=== PATIENT | male | born 1985 | race Caucasian/White ===

== ENCOUNTER 2019-01-22 16:02 | Emergency (ER) | payer MEDICAID, SELFPAY ==
[2019-01-22 16:08] VITALS: BP 170/99; PULSE 62; RESP 14; TEMP 36.3; O2SAT 99
[2019-01-22] MEDS: Normal Saline 1,000 ML 1000 ML IV (16:42)
[2019-01-22 16:58] LABS: Abs Immature Grans 0.03 k/cumm (0.0-0.09); Absolute Basophil Count 0.05 k/cumm (0.0-0.2); Absolute Eosinophil Count 0.22 k/cumm (0.0-0.7); Absolute Lymphocyte Count 3.51 k/cumm (1.2-3.4); Absolute Monocyte Count 0.73 k/cumm (0.11-0.7); Absolute Neutrophil Count 5.52 k/cumm (1.2-6.7); Basophils % 0.5; Eosinophils % 2.2; HCT 41.6 % (40.0-50.0); HGB 14.2 g/dL (13.5-17.5); Immature Grans % 0.3; Lymphocytes % 34.9; Mean Corp. HGB Concentration 34.1 g/dL (32.0-36.0); Mean Corpuscular Hemoglobin 29.7 pg (27.0-33.0); Mean Platelet Volume 9.8 fL (8.0-11.0); Monocytes % 7.3; Neutrophils % 54.8; Platelet Count 304 x1000/uL (130-400); RBC 4.78 m/cumm (4.50-6.00); RBC Distribution Width 12.3 % (11.8-14.1); White Blood Cell Count 10.06 k/cumm (4.4-10.8)
--- NOTE | 2019-01-22 17:15 | W.ED.GENAD ---
Discharge Plan Disposition Patient Disposition: HOME Condition: Good Discharge Details Chief Complaint: Dizzy/Sync Clinical Impression: Heart palpitations Primary Care Provider: Elba Villarreal ED Provider: Conor Linares Home Meds and New Rx's Prescriptions: No Action propranolol 60 MG tablet 60 mg PO TID RF: 0 dextroamphetamine-amphetamine [Adderall] 20 MG tablet 20 mg PO DAILY RF: 0 buprenorphine HCl 8 mg Tablet, Sublingual 8 mg Sublingual DAILY RF: 0 Discharge Instructions Instructions: Palpitations (ED) Additional Instructions: Your labs, electrolytes, and EKG are all normal. We will get the Holter monitor scheduled for you. Please follow-up closely with your primary care provider for reassessment. If you notice any worsening of your symptoms, or any new symptoms such as vomiting, diarrhea, fever, chills, shortness of breath, chest pain, numbness, weakness, or fainting , please return immediately to the emergency department for reevaluation. Please follow up with your primary care provider as soon as possible for reassessment and reevaluation. As always, it was a pleasure participating in your medical care today. Referrals: Elba Villarreal [Primary Care Provider] - Medical Decision Making This is a 33-year-old male with a past medical history of anxiety and palpitations who presents today for evaluation of palpitations. The patient has a history of previous palpitations in the past, this was evaluated with a Holter monitor and found to be otherwise normal. Here today he has had some occasional palpitations with some associated lightheadedness. He denies any family history of sudden , syncope, or early [place] peer he denies any IV or illicit drug use. He has not had any actual episode of syncope. Exam demonstrates a well-appearing male with no significant abnormalities. EKG is benign with no concerning symptoms of Brugada, epsilon wave, or delta wave. He did have his episode of palpitation, here in the ED, and it appears to be a PVC. Laboratory work-up was performed and demonstrates no significant electrolyte abnormalities, notably reassuring vital signs. Troponin is normal, TSH is normal. In the setting of benign work-up, reassuring vital signs, no other significant abnormalities I feel he can be safely discharged home with close follow-up. I do feel that dehydration was a notable part of his components especially that he is feeling great after having the liter of normal saline. A Holter monitor will be placed here today, patient will follow closely with his PCP. I have extensively reviewed the treatment plan and discharge instructions with the patient. I have addressed all patient concerns at this time. The patient was made aware of what symptoms to monitor for that would warrant a return to the emergency department. Discussed the plan with the patient, they demonstrate verbal understanding and agreement with our assessment and plan at this time. EKG 16: 15 Rate 64, intervals normal, sinus rhythm, no significant ST elevations or depressions, there is an inverted T wave in V1, no epsilon wave or delta wave. No evidence of Brugada syndrome. No other significant abnormalities. No Q waves. HPI General Date/Time Provider Initiated Documentation: 01/22/19 16:21. HPI Narrative: This is a pleasant 33-year-old male with no significant past medical history except for anxiety and previous palpitations which she had a Holter monitor a few years ago which showed no significant abnormality. He presents today for evaluation of palpitations mild lightheadedness. 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 He also had some occasional palpitations which he described as a funny beat in his chest. He denies any syncope, or actually passing out or hitting his head. He did sit down and this improved his symptoms. He drank an entire Gatorade and then came to the ER for further assessment. Currently he denies any chest pain, shortness of breath, numbness, tingling, weakness or palpitations. She denies any vomiting or diarrhea. No other complaints or modifying factors. Related Data Home Medications Medication Instructions Recorded Confirmed dextroamphetamine-amphetamine 20 mg PO DAILY 04/28/15 04/28/15 [Adderall] propranolol 60 mg PO TID 04/28/15 04/28/15 buprenorphine HCl 8 mg SUBLINGUAL DAILY 01/22/19 01/22/19 Allergies Allergy/AdvReac Type Severity Reaction Status Date / Time No Known Allergies Allergy Unverified 01/22/19 16:58 General Stated Complaint: Dizzy/Sync NADER: 3 Review of Systems Review of Systems All systems reviewed & are unremarkable except as noted in HPI and below PFSH Social History Smoking/Tobacco Use Status: Current every day Drug use: Never Substance use type: former substance user and heroin Do you feel safe at home: Yes Exam Narrative Exam Narrative: 1.Const: Well-nourished, Well-developed, appearing stated age 2.Eyes: PERRL, no conjunctival injection, and symmetrical lids. 3.ENT: Atraumatic external nose and ears. Moist MM. Neck: Symmetric, trachea midline, No thyromegaly. 4.CVS: +S1/S2, No murmurs or gallops. Peripheral pulses 2+ and equal in all extremities. Brisk capillary refill in all extremities. 5.RESP: Unlabored respiratory effort. Clear to auscultation bilaterally. No wheezes rales or rhonchi 6.GI: Soft, Nontender/Nondistended, No hepatosplenomegaly. No guarding or rebound. 7.MSK: Normocephalic/Atraumatic, Extremities w/o deformity or ttp No cyanosis or clubbing, Normal movement of all extremities 8.Skin: Warm, Dry. No rashes or lesions. 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 Sensation grossly intact, no focal neurologic deficits. All 6 cardinal planes of vision are fully intact. No evidence of rotatory or vertical nystagmus. The patient demonstrated a normal [id number], good dexterity. There was no evidence of dysdiadochokinesia. Patient was able to ambulate without difficulty. There was no wide-based gait. Romberg, and [id number] are both normal on testing. Sensation was intact bilaterally as well as muscle strength bilaterally for all extremities. Patient was able to verbalize butter cup with no slurring, or miss pronunciation. 10.Psych: (AAO) x3. Appropriate mood and affect Course Vital Signs Temperature 36.3 C L 01/22/19 16:08 Pulse 62 01/22/19 16:08 Respiratory Rate 14 01/22/19 16:08 Blood Pressure 170/99 H 01/22/19 16:08 Pulse Oximetry 99 01/22/19 16:08 Temperature 36.3 C L 01/22/19 16:08 Temperature Source Temporal Artery Scan 01/22/19 16:08 Pulse 62 01/22/19 16:08 Respiratory Rate 14 01/22/19 16:08 Respiratory Effort Non-Labored 01/22/19 16:32 Blood Pressure 170/99 H 01/22/19 16:08 Blood Pressure Position Sitting 01/22/19 16:08 Pulse Oximetry 99 01/22/19 16:08 Oxygen Delivery Method Room Air 01/22/19 16:08 Oxygen Flow Rate 0 01/22/19 16:08 Pain Level 0 01/22/19 16:08 Lab/Test Results Lab/Test Results: Laboratory Tests Range/Units 01/22/19 16:25 WBC (4.4-10.8) k/cumm 10.06 RBC (4.50-6.00) m/cumm 4.78 Hgb (13.5-17.5) g/dL 14.2 Hct (40.0-50.0) % 41.6 MCV (80-95) fL 87.0 MCH (27.0-33.0) pg 29.7 MCHC (32.0-36.0) g/dL 34.1 RDW (11.8-14.1) % 12.3 Plt Count (130-400) x1000/uL 304 MPV (8.0-11.0) fL 9.8 Immature Gran % 0.3 Neutrophils % 54.8 Lymphocytes % 34.9 Monocytes % 7.3 Eosinophils % 2.2 Basophils % 0.5 Absolute Neutrophils (1.2-6.7) k/cumm 5.52 Absolute Lymphocytes (1.2-3.4) k/cumm 3.51 H Absolute Monocytes (0.11-0.7) k/cumm 0.73 H Absolute Eosinophils (0.0-0.7) k/cumm 0.22 Absolute Basophils (0.0-0.2) k/cumm 0.05
[2019-01-22 17:17] LABS: ALT 40 U/L (12-78); AST 25 U/L (15-37); Albumin 3.7 g/dL (3.4-5.0); Alkaline Phosphatase 73 U/L (46-116); Anion Gap 5.9 mmol/L (3-11); BUN 18 mg/dL (7-18); Bilirubin, Total 0.3 mg/dL (0.2-1.0); CO2 31.1 mmol/L (21.0-32.0); Calcium 9.1 mg/dL (8.5-10.1); Chloride 101 mmol/L (98-107); Glucose 84 mg/dL (70-100); Potassium 3.8 mmol/L (3.5-5.1); Sodium 138 mmol/L (136-145); TSH (W/Ref FT4) 1.39 uIU/mL (0.358-3.74); Total Protein 7.3 g/dL (6.4-8.2)
--- NOTE | 2019-01-22 17:18 | ED.GENADUL_ITS ---
Discharge Plan Disposition Patient Disposition: HOME Condition: Good Discharge Details Chief Complaint: Dizzy/Sync Clinical Impression: Heart palpitations Primary Care Provider: Elba Villarreal ED Provider: Conor Linares Home Meds and New Rx's Prescriptions: No Action propranolol 60 MG tablet 60 mg PO TID RF: 0 dextroamphetamine-amphetamine [Adderall] 20 MG tablet 20 mg PO DAILY RF: 0 buprenorphine HCl 8 mg Tablet, Sublingual 8 mg Sublingual DAILY RF: 0 Discharge Instructions Instructions: Palpitations (ED) Additional Instructions: Your labs, electrolytes, and EKG are all normal. We will get the Holter monitor scheduled for you. Please follow-up closely with your primary care provider for reassessment. If you notice any worsening of your symptoms, or any new symptoms such as vomiting, diarrhea, fever, chills, shortness of breath, chest pain, numbness, weakness, or fainting , please return immediately to the emergency department for reevaluation. Please follow up with your primary care provider as soon as possible for reassessment and reevaluation. As always, it wa s a pleasure participating in your medical care today. Referrals: Elba Villarreal [Primary Care Provider] - Medical Decision Making This is a 33-year-old male with a past medical history of anxiety and palpitations who presents today for evaluation of palpitations. The patient has a history of previous palpitations in the past, this was evaluated with a Holter monitor and found to be otherwise normal. Here today he has had some occasional palpitations with some associated lightheadedness. He denies any family history of sudden , syncope, or early [place] peer he denies any IV or illicit drug use. He has not had any actual episode of syncope. Exam demonstrates a well- appearing male with no significant abnormalities. EKG is benign with no concerning symptoms of Brugada, epsilon wave, or delta wave. He did have his episode of palpitation, here in the ED, and it appears to be a PVC. Laboratory work-up was performed and demonstrates no significant electrolyte abnormalities, notably reassuring vital signs. Troponin is normal, TSH is normal. In the setting of benign work-up, reassuring vital signs, no other significant abnormalities I feel he can be safely discharged home with close follow-up. I do feel that dehydration was a notable part of his components especially that he is feeling great after having the liter of normal saline. A Holter monitor will be placed here today, patient will follow closely with his PCP. I have extensively reviewed the treatment plan and discharge instructions with the patient. I have addressed all patient concerns at this time. The patient was made aware of what symptoms to monitor for that would warrant a return to the emergency department. Discussed the plan with the patient, they demonstrate verbal understanding and agreement with our assessment and plan at this time. EKG 16: 15 Rate 64, intervals normal, sinus rhythm, no significant ST elevations or de pressions, there is an inverted T wave in V1, no epsilon wave or delta wave. No evidence of Brugada syndrome. No other significant abnormalities. No Q waves. HPI General Date/Time Provider Initiated Documentation: 01/22/19 16:21 . HPI Narrative: This is a pleasant 33-year-old male with no significant past medical history except for anxiety and previous palpitations which she had a Holter monitor a few years ago which showed no significant abnormality. He presents today for evaluation of palpitations mild lightheadedness. 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 He also had some occasional palpitations which he described as a funny beat in his chest. He denies any syncope, or actually passing out or hitting his head. He did sit down and this improved his symptoms. He drank an entire Gatorade and then came to the ER for further assessment. Currently he denies any chest pain, shortness of breath, numbness, tingling, weakness or palpitations. She denies any vomiting or diarrhea. No other complaints or modifying factors. Related Data Home Medications Medication Instructions Recorded Confirmed dextroamphetamine-amphetamine 20 mg PO DAILY 04/28/15 04/28/15 [Adderall] propranolol 60 mg PO TID 04/28/15 04/28/15 buprenorphine HCl 8 mg SUBLINGUAL DAILY 01/22/19 01/22/19 Allergies Allergy/AdvReac Type Severity Reaction Status Date / Time No Known Allergies Allergy Unverified 01/22/19 16:58 General Stated Complaint: Dizzy/Sync NADER: 3 Review of Systems Review of Systems All systems reviewed & are unremarkable except as noted in HPI and below PFSH Social History Smoking/Tobacco Use Status: Current every day Drug use: Never Substance use type: former substance user and heroin Do you feel safe at home: Yes Exam Narrative Exam Narrative: 1.Const: Well-nourished, Well-developed, appearing stated age 2.Eyes: PERRL, no conjunctival injection, and symmetrical lids. 3.ENT: Atraumatic external nose and ears. Moist MM. Neck: Symmetric, trachea midline, No thyromegaly. 4.CVS: +S1/S2, No murmurs or gallops. Peripheral pulses 2+ and equal in all extremities. Brisk capillary refill in all extremities. 5.RESP: Unlabored respiratory effort. Clear to auscultation bilaterally. No wheezes rales or rhonchi 6.GI: Soft, Nontender/Nondistended, No hepatosplenomegaly. No guarding or rebound. 7.MSK: Normocephalic/Atraumatic, Extremities w/o deformity or ttp No cyanosis or clubbing, Normal movement of all extremities 8.Skin: Warm, Dry. No rashes or lesions. 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 Sensation grossly intact, no focal neurologic deficits. All 6 cardinal planes of vision are fully intact. No evidence of rotatory or vertical nystagmus. The patient demonstrated a normal [id number]-[id number]-twcqzn, good dexterity. There was no evidence of dysdiadochokinesia. Patient was able to ambulate without difficulty. There was no wide-based gait. Romberg, and [id number] are both normal on testing. Sensation was intact bilaterally as well as muscle strength bilaterally for all extremities. Patient was able to verbalize butter cup with no slurring, or miss pronunciation. 10.Psych: (AAO) x3. Appropriate mood and affect Course Vital Signs Temperature 36.3 C L 01/22/19 16:08 Pulse 62 01/22/19 16:08 Respiratory Rate 14 01/22/19 16:08 Blood Pressure 170/99 H 01/22/19 16:08 Pulse Oximetry 99 01/22/19 16:08 Temperature 36.3 C L 01/22/19 16:08 Temperature Source Temporal Artery Scan 01/22/19 16:08 Pulse 62 01/22/19 16:08 Respiratory Rate 14 01/22/19 16:08 Respiratory Effort Non-Labored 01/22/19 16:32 Blood Pressure 170/99 H 01/22/19 16:08 Blood Pressure Position Sitting 01/22/19 16:08 Pulse Oximetry 99 01/22/19 16:08 Oxygen Delivery Method Room Air 01/22/19 16:08 Oxygen Flow Rate 0 01/22/19 16:08 Pain Level 0 01/22/19 16:08 Lab/Test Results Lab/Test Results: Laboratory Tests Range/Units 01/22/19 16:25 WBC (4.4-10.8) k/cumm 10.06 RBC (4.50-6.00) m/cumm 4.78 Hgb (13.5-17.5) g/dL 14.2 Hct (40.0-50.0) % 41.6 MCV (80-95) fL 87.0 MCH (27.0-33.0) pg 29.7 MCHC (32.0-36.0) g/dL 34.1 RDW (11.8-14.1) % 12.3 Plt Count (130-400) x1000/uL 304 MPV (8.0-11.0) fL 9.8 Immature Gran % 0.3 Neutrophils % 54.8 Lymphocytes % 34.9 Monocytes % 7.3 Eosinophils % 2.2 Basophils % 0.5 Absolute Neutrophils (1.2-6.7) k/cumm 5.52 Absolute Lymphocytes (1.2-3.4) k/cumm 3.51 H Absolute Monocytes (0.11-0.7) k/cumm 0.73 H Absolute Eosinophils (0.0-0.7) k/cumm 0.22 Absolute Basophils (0.0-0.2) k/cumm 0.05
[2019-01-22 17:22] LABS: Troponin I < 0.02 ng/mL (0.00-0.06)
[2019-01-22 17:36] VITALS: PULSE 75; RESP 16; TEMP 37; O2SAT 95
[2019-01-22 17:40] VITALS: BP 132/67; PULSE 75; RESP 16; TEMP 37; O2SAT 95
--- NOTE | 2019-01-29 10:46 | HOLTER_ITS ---
DATE OF DICTATION: January 29, 2019 STUDY INDICATION: Not available. REQUESTING PROVIDER: Chloe Castañeda FINDINGS: The patient was monitored for 2 days. Baseline sinus rhythm. Average heart rate 74 bpm. Heart rate range 49-130 bpm. 527 PVC's. No VT. One PAC. No SVT. No high degree heart block. No pauses greater than 3 seconds. 3 patient events. None of these events correlated with arrhythmias. Baseline sinus rhythm. FINAL INTERPRETATION: No significant arrhythmias.
== END 2019-01-22 17:56 | disposition home or self-care (01) ==
PROVIDERS: Emergency Provider Student in an Organized Health Care Education/Training Program; PCP Internal Medicine
DX: R00.2 Palpitations (principal); F41.9 Anxiety disorder, unspecified
CPT/HCPCS: 36415; 80053; 93005; 96360; 99284; 83735; 84443; 84484; 85025; 93010; 93225

== ENCOUNTER 2019-01-28 17:15 | Outpatient (CLI) | payer MEDICAID, SELFPAY | END 2019-01-28 17:35 | PROVIDERS: PCP Internal Medicine; Visit Provider Student in an Organized Health Care Education/Training Program | DX: I49.3 Ventricular premature depolarization (principal) | CPT/HCPCS: 93226 ==

== ENCOUNTER 2019-09-25 13:46 | Outpatient (REF) | payer MEDICAID, SELFPAY ==
[2019-09-27 11:35] LABS: Appearance Normal; Container Type 50 mL Conical; Double Forms 1.5 %; Grade 2.5 (>=2.5); Head Shape Abnormal 21.5 %; Midpiece Defect 9.5 %; Motile/Ejaculate 11.7 x10(6) (>=9.0); Motile/mL 11.7 x10(6) (>=6.0); Motility 19 % (>=40); Sperm/mL 61.5 x10(6) (>=15.0); Study Type Semen; Supravital Stain 50 % live (>=58); Tail Defect 41.5 %
== END 2019-09-25 14:06 ==
LOC: LBN 13:46
PROVIDERS: PCP Internal Medicine; Visit Provider Obstetrics & Gynecology
DX: Z31.41 Encounter for fertility testing (principal)
CPT/HCPCS: 89240; 89310

== ENCOUNTER 2021-05-12 00:52 | Outpatient (CLI) | payer MEDICAID, SELFPAY ==
[2021-05-12 10:56] LABS: ALT 45 U/L (16-63); AST 19 U/L (15-37); Albumin 3.8 g/dL (3.4-5.0); Alkaline Phosphatase 60 U/L (46-116); Anion Gap 7.5 mmol/L (3-11); BUN 13 mg/dL (7-18); Bilirubin, Total 0.4 mg/dL (0.2-1.0); CO2 30.5 mmol/L (21.0-32.0); CREATININE 0.9 mg/dL (0.70-1.30); Calcium 9.1 mg/dL (8.5-10.1); Calculated LDL 131 mg/dL (<100); Chloride 103 mmol/L (98-107); Cholesterol 195 mg/dL (<200); Glucose 107 mg/dL (74-106); HDL Cholesterol 53 mg/dL (40-60); Potassium 4.3 mmol/L (3.5-5.1); Sodium 141 mmol/L (136-145); Total Protein 7.2 g/dL (6.4-8.2); Triglyceride 59 mg/dL (<150)
[2021-05-12 10:57] LABS: TSH 1.23 uIU/mL (0.36-3.74)
[2021-05-12 17:00] LABS: Prolactin 4.8 ng/mL (2.1-17.7)
[2021-05-20 14:41] LABS: Testosterone, Free 13.4 ng/dL (4.65-18.1); Testosterone, Total 362 ng/dL (240-950)
== END 2021-05-12 00:53 | disposition home or self-care (01) ==
LOC: LBO 00:52
PROVIDERS: Obstetrics & Gynecology; PCP Internal Medicine; Visit Provider Internal Medicine
DX: Z13.6 Encounter for screening for cardiovascular disorders (principal); F41.9 Anxiety disorder, unspecified; N46.11 Organic oligospermia
CPT/HCPCS: 36415; 80053; 80061; 84402; 84403; 83001; 83002; 84146; 84443

== ENCOUNTER 2022-12-20 11:24 | Outpatient (REF) | payer MEDICAID, SELFPAY ==
[2022-12-22 13:18] LABS: Acrosom Defect 12.5 %; Appearance Normal; Container Type 50 mL Conical; Head Shape Abnormal 16.5 %; Midpiece Defect 13.5 %; Motility 30 % (>=40); Sperm/mL 56.7 x10(6) (>=15.0); Study Type Semen; Tail Defect 49.5 %; WBC/mL 0.85 x10(6) (<1.00)
== END 2022-12-20 11:25 | disposition home or self-care (01) ==
LOC: LBN 11:24
PROVIDERS: PCP Internal Medicine; Visit Provider Internal Medicine
DX: Z31.41 Encounter for fertility testing; N46.11 Organic oligospermia
CPT/HCPCS: 89240; 89310